=== PATIENT | male | born 1945 | race Caucasian/White ===

== ENCOUNTER → 2018-07-01 | Outpatient (CLI) | END | disposition home or self-care (01) ==

== ENCOUNTER → 2018-07-05 | Outpatient (CLI) | END | disposition home or self-care (01) ==

== ENCOUNTER → 2018-07-07 | Outpatient (CLI) | END | disposition home or self-care (01) ==

== ENCOUNTER → 2018-07-29 | Outpatient (CLI) | END | disposition home or self-care (01) ==

== ENCOUNTER 2018-09-30 08:59 | Day surgery (SDC) | END 2018-09-30 15:50 | disposition home or self-care (01) ==